=== PATIENT | male | born 1945 | race Caucasian/White ===

== ENCOUNTER → 2019-12-09 10:32 | Outpatient (CLI) | payer OTHER, SELFPAY ==
--- NOTE | 2019-12-09 | DI.CT.S_ITS ---
PROCEDURE: CT HEAD/BRAIN WO CON INDICATIONS: Other amnesia TECHNIQUE: Noncontrast 4.5 mm thick angled axial sections acquired from the foramen magnum to the vertex, with coronal and sagittal reformats. For radiation dose reduction, the following was used: automated exposure control, adjustment of mA and/or kV according to patient size. COMPARISON: None. FINDINGS: Image quality: Excellent. CSF spaces: Basal cisterns are patent. No extra-axial fluid collections. The ventricles are symmetric in size and shape. Brain: No intracranial bleeds or masses. There is cerebral volume loss for age, with resultant ventricular and sulcal prominence. There are periventricular and deep white matter chronic small vessel ischemic changes. There is intracranial internal carotid artery atherosclerosis. Skull and face: Calvarium and visualized facial bones appear intact, without suspicious lesions. Sinuses: Visualized sinuses and mastoids are clear. IMPRESSION: Unremarkable intracranial study for age. Dictated by: Drew Olivas M.D. on 12/09/2019 at 9:50 Approved by: Drew Olivas M.D. on 12/09/2019 at 9:50
== END ==
PROVIDERS: Family Provider Physician Assistant Medical; PCP Physician Assistant Medical; Referring Provider Internal Medicine; Visit Provider Internal Medicine
DX: R41.3 Other amnesia (principal)
CPT/HCPCS: 70450

== ENCOUNTER → 2023-12-09 | Outpatient (CLI) | payer OTHER, SELFPAY ==
--- NOTE | 2023-12-09 13:29 | ST.SWALLOW ---
Visit Care Team Role Provider Type Yon Gill PA-C Attending Provider Non-Staff Family Provider Primary Care Provider Referring Provider Specialty: Medical Address: [address] [place] [address], [id number] Email: Modified Barium Swallow Study CLINICAL TRIAL SPECIALIST Modified Barium Swallow Study Start: 12/09/23 09:43 Freq: Status: Active Protocol: Document 12/09/23 11:51 LNK (Rec: 12/09/23 12:29 LNK [id number]) Modified Barium Swallow Study Total Time Visit Start Time 11:00 Visit Stop Time 11:30 Total Visit Minutes [address] Yon Gill Reason for Referral dysphagia Setting Setting Outpatient Care Patient Information Identification Type Name,Date of Patient History Per clinical swallow evaluation report (CLINICAL TRIAL SPECIALIST): Pt is a 78 year old male seen this date for dysphagia evaluation. He is accompanied by his . Pt provided most information d/t Pt with dx of Alzheimer's dementia (AD ). Pt reports he has been having difficulties swallowing for about 3 years, which is when he was diagnosed with AD. She states it has gotten progressively worse. She states he chokes/coughs when eating and drinking and even when he isn't eating/ drinking... She says sometimes he will choke 3 times during a meal. She denies he has had any PNA the past 3 years. She reports pt has new set of full U/L dentures. She reports he has most difficulties swallowing dry things, large pills and will also choke during the middle of the night . She states he talks a lot while eating too and may not be breathing correctly while eating. Pt with PMHx significant for: Alzheimer's dementia, high blood pressure, high cholesteral. Subjective Observations Pt was seated in the fluoroscopy chair with directions and procedures described for him. He indicated he understood and agreed to proceed. Patient Positioning Position View Lat-A/P Imaging Lateral View Textures Administered Trials Presented Thin Liquid via Spoon (IDDSI 0 ),Thin Liquid via Cup (IDDSI 0 ),Extremely Thick Liquid via Spoon (IDDSI 4),Puree (IDDSI 4 ),Soft & Bite-sized (IDDSI, Regular (IDDSI 7) Barium Tablet Yes The IDDSI Framework Protocol: IDDSI.1 Oral Impairment Source: The Modified Barium Swallow Impairment Profile (MBSImP??) Lip Closure No labial escape Tongue Control During Bolus Hold Cohesive bolus between tongue to palatal seal Bolus Preparation/Mastication Timely & efficient chewing & mashing Bolus Transport/Lingual Motion Delayed initiation of tongue motion Oral Residue Trace residue lining oral structures Location Tongue,Lateral sulci Initiation of Pharyngeal Swallow Bolus head in valleculae Additional Oral Impairment Observations Oral phase of swallow is WNL *OME and DKS were observed to be WNL. *U/L dentures well-fitted and in good oral hygiene *Mastication observed with rotary chew pattern. *Good bolus formation, control and AP transition. Pharyngeal Impairment Source: The Modified Barium Swallow Impairment Profile (MBSImP??) Soft Palate Elevation No bolus between soft palate & pharyngeal wall Laryngeal Elevation Comp.sup.move.thyroid cart.w/ comp.approx.arytenoids to epiglot petiole Anterior Hyoid Excursion Partial anterior movement Epiglottic Movement Complete inversion Laryngeal Vestibular Closure Complete; no air/contrast in laryngeal vestibule Pharyngeal Stripping Wave Present - complete Pharyngoesophageal Segment Opening Complete distention & complete duration; no obstruction of flow Tongue Base Retraction Trace column of contrast/air betwn tongue base & post. pharyngeal wall Pharyngeal Residue Trace residue within/on pharyngeal structures Location Valleculae Additional Pharyngeal Impairment *Pharyngeal phase of Observations swallowing observed to be WFL *CP bar visualized *Mild weakness in base of tongue retraction; may be considered WNL for pt's age *No laryngeal penetration or tracheal aspiration occurred A/P View Textures Administered Trials Presented Thin Liquid via Spoon (IDDSI 0 ) The IDDSI Framework Protocol: IDDSI.1 A/P View Observations Pharyngeal Contraction Complete Esophageal Clearance Upright Position Complete clearance; esophageal coating Vocal Fold Function Good Esophageal Function WFL Additional A-P Observations Barium liquid trial and calibrated barium tablet cleared esophagus in a timely manner as expected Clinical Impressions Dysphagia Type WNL Findings Pt presented with swallowing WNL across oral, pharyngeal and esophageal phases. Pt demonstrated no laryngeal penetration or tracheal aspiration across MBSS trials. Pt likes to talk and his reports he talks frequently during meals. Additionally, pt may be increasingly distracted secondary to Alzheimer's dementia when eating/drinking. Given the results of the MBSS, the pt is likely conversing and or distracted when eating/ drinking, resulting in increased risk for laryngeal penetration and/or tracheal aspiration of food/liquids/ pills. Swallow therapy is recommended fro education re: safe swallow strategies and base of tongue exercises to reduce risk for aspiration Rehabilitation Potential Good Patient Appropriate for Therapy Yes: Pt education re: safe swallow strategies; base of tongue exercises as indic Recommendations Diet Liquids Order Thin (IDDSI 0) Diet Order Soft & Bite-sized (IDDSI 6) Medication Recommendation Whole in Carrier,One at a Time Additional Dietary Needs Reminders to Use Strategies Aspiration Precautions Recommended Precautions Upright at 90 Degrees,Frequent Rest Periods,Small Bites/Sips Additional Precautions Reduce distractions; Swallow before speaking in conversations Treatment Plan Therapy Recommendations Outpatient Speech Therapy Additional Recommended Referrals Pt's reported pt demonstrating increased PND due to potential allergies Additional Recommendations/Comments Recommend Allergy assessment due to report of increased PND, throat clearing, coughing
== END ==
LOC: RAD 10:42
PROVIDERS: Family Provider Physician Assistant; PCP Physician Assistant; Referring Provider Physician Assistant; Visit Provider Physician Assistant
DX: R13.10 Dysphagia, unspecified (principal)
CPT/HCPCS: 74230; 92610

== ENCOUNTER 2023-12-11 14:30 | Outpatient (RCR) | payer OTHER, SELFPAY ==
--- NOTE | 2023-10-08 17:13 | ST.OPIE ---
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 Yon Gill Reason for Referral Dysphagia Setting Assessment Location Outpatient Care Visit Type Note Type Initial evaluation Next Note Type Next Note Type Treatment Note Patient Information Identification Type Name History Pt is a 78 year old male seen this date for dysphagia evaluation. He is accompanied by his . Pt provided most information d/t Pt with dx of Alzheimer's dementia (AD ). Pt reports he has been having difficulties swallowing for about 3 years, which is when he was diagnosed with AD. She states it has gotten progressively worse. She states he chokes/coughs when eating and drinking and even when he isn't eating/ drinking. She reports he had a MBS completed about 5-6 months ago, however did not know what the results were and does not have the report with her. She says sometimes he will choke 3 times during a meal. She denies he has had any PNA the past 3 years. She reports he just had oral surgery about a week ago to remove his remaining teeth and now wears full dentures. She reports he has most difficulties swallowing dry things, large pills and will also choke during the middle of the night. She states he talks a lot while eating too and may not be breathing correctly while eating. Pt with PMHx significant for: Alzheimer's dementia, high blood pressure, high cholesteral. She reports he consumes regular solids and thin liquids but she has started giving him more soft foods. Subjective Observations Pt oriented to year, city and person, difficulties recalling month. Reported by Patient/Caregiver Other Symptoms Choking,Coughing,Difficulty swallowing liquids,Difficulty swallowing pills,Difficulty swallowing solids Current Diet Regular (IDDSI 7) Baseline Feeding Method Independent in self-feeding The IDDSI Framework Protocol: IDDSI.1 Objective Assessment Mental Status Alert,Responsive,Cooperative, Confused Oral Integrity WFL Dentition Upper dentures/partials,Lower dentures/partials Comment Pt with full dentures. Generalized mild reduction in lingual and labial strength and ROM. Food and Liquid Trials Position During Assessment Upright (90 degrees) Liquids Trialed Thin (IDDSI 0) Solid Trials Soft & Bite-sized (IDDSI 6), Regular (IDDSI 7) Administration Type Self-feeding Oral Impairment Mildly impaired Oral Phase Comments Pt consumed about 8 oz of juice via cup, 2 jermain crackers and diced pears. For solids, Pt demonstrated adequate bite size and rate, prolonged mastication however adequate bolus formation and control, extended ap transport , piecemeal deglutition, minimal oral stasis. For thin liquids Pt demonstrated adequate sip size and rate, good oral acceptance and containment. Pharyngeal Impairment Mildly impaired Pharyngeal Phase Comments Pt with 2x throat clear post swallows with solids. Suspected delay in swallow with all trials. No overt s/s of aspiration such as coughing or choking. Pt reports he did really well compared to what she see's at home when he is eating/drinking. Fatigue/Endurance Endurance WNL The IDDSI Framework Protocol: IDDSI.1 Findings Swallowing Function Oropharyngeal phase dysphagia Severity of Swallow Impairment Mildly-moderately impaired Prognosis Good Based on Family support Impact on Safety and Functioning Risk for aspiration Recommendations Instrumental Assessment Yes Swallowing Treatment Yes Frequency 1x/week Duration 3 months Recommended Solids Soft & Bite-sized (IDDSI 6) Recommended Liquids Thin (IDDSI 0) Other Recommendations ST recommends Pt consume soft and bite sized solids and thin liquids with the below mentioned safe swallowing strategies in place. ST recommends Pt participate in a MBS. Safety Precautions/Swallowing 1 to 1 distant supervision, Recommendations Remain upright (90 degrees) during all oral intake,Upright position at least 30 minutes after meals,Small bites and sips when eating,Slow rate; swallow between bites, Alternate liquids and solids, Strict oral care after intake Medication Recommendations As Tolerated Education Patient/Caregiver Education Described results of evaluation,Patient expressed understanding of evaluation, Patient expressed agreement with goals & treatment plans, Patient requires further education/training,Family/ caregivers require further education/training Goals Short-term Goals STG 1: Pt will participate in MBS in order to further guide POC. STG 2: Pt will tolerate prescribed diet with <5% overt s/s of aspiration/dysphagia with use of compensatory swallowing strategies and minimal cues. STG 3: Pt will complete hyolaryngeal strengthening exercises for improved pharyngeal phase of swallow with minimal cueing with 90% accuracy. Long-term Goals LTG 1: Patient will consume safest and most efficient least restrictive diet with no clinical s/s of aspiration or dysphagia 100% of the time in order to meet primary nutrition/hydration needs.
--- NOTE | 2023-10-08 17:13 | ST.OPPOC ---
Physical, Occupational & Speech Therapy At [facility] Visit Care Team Role Provider Type Yon Gill PA-C Attending Provider Non-Staff Family Provider Primary Care Provider Referring Provider Address: [address] [place] [address], [id number] Speech Pathology Plan of Care Plan of Care Dates 10/08/23-01/08/[address] Yon Gill Patient History Pt is a 78 year old male seen this date for dysphagia evaluation. He is accompanied by his . Pt provided most information d/t Pt with dx of Alzheimer's dementia (AD). Pt reports he has been having difficulties swallowing for about 3 years, which is when he was diagnosed with AD. She states it has gotten progressively worse. She states he chokes/coughs when eating and drinking and even when he isn't eating/drinking. She reports he had a MBS completed about 5-6 months ago, however did not know what the results were and does not have the report with her. She says sometimes he will choke 3 times during a meal. She denies he has had any PNA the past 3 years. She reports he just had oral surgery about a week ago to remove his remaining teeth and now wears full dentures . She reports he has most difficulties swallowing dry things, large pills and will also choke during the middle of the night. She states he talks a lot while eating too and may not be breathing correctly while eating. Pt with PMHx significant for: Alzheimer's dementia, high blood pressure, high cholesteral. She reports he consumes regular solids and thin liquids but she has started giving him more soft foods. Short-term Goals STG 1: Pt will participate in MBS in order to further guide POC. STG 2: Pt will tolerate prescribed diet with <5% overt s/s of aspiration/dysphagia with use of compensatory swallowing strategies and minimal cues. STG 3: Pt will complete hyolaryngeal strengthening exercises for improved pharyngeal phase of swallow with minimal cueing with 90% accuracy. Long-term Goals LTG 1: Patient will consume safest and most efficient least restrictive diet with no clinical s/s of aspiration or dysphagia 100% of the time in order to meet primary nutrition/ hydration needs. Comment: ST recommends referral for MBS at [facility]. Fax number . Electronically Signed by: NEY Chavira 10/08/23 [id number] If you are in agreement with this Plan of Care, please return a signed and dated copy. I have reviewed this Plan of Care and certify that the skilled therapy services above are required to meet the patient?s needs. Physician Signature Date Printed Name and Credentials Clinical Instructor Signature Printed Name and Credentials
--- NOTE | 2023-12-11 15:01 | ST.OPTN ---
Visit Care Team Role Provider Type Yon Gill PA-C Attending Provider Non-Staff Family Provider Primary Care Provider Referring Provider Address: [address] [place] [address], [id number] SALESFORCE BUSINESS ANALYST Treatment Note SALESFORCE BUSINESS ANALYST Treatment Note Start: 12/11/23 14:54 Freq: Status: Active Protocol: Document 12/11/23 14:55 RACHEL (Rec: 12/11/23 15:01 RACHEL [id number]) Speech Pathology Treatment Note Session Time Visit Start Time 14:30 Visit Stop Time 15:00 Total Visit Minutes 30 Visit Information Visit Number 2 Plan of Care Dates 10/08/23-01/08/24 Setting Treatment Setting Outpatient Care General Information Patient History Pt is a 78 year old male seen this date for dysphagia evaluation. He is accompanied by his . Pt provided most information d/t Pt with dx of Alzheimer's dementia (AD ). Pt reports he has been having difficulties swallowing for about 3 years, which is when he was diagnosed with AD. She states it has gotten progressively worse. She states he chokes/coughs when eating and drinking and even when he isn't eating/ drinking. She reports he had a MBS completed about 5-6 months ago, however did not know what the results were and does not have the report with her. She says sometimes he will choke 3 times during a meal. She denies he has had any PNA the past 3 years. She reports he just had oral surgery about a week ago to remove his remaining teeth and now wears full dentures. She reports he has most difficulties swallowing dry things, large pills and will also choke during the middle of the night. She states he talks a lot while eating too and may not be breathing correctly while eating. Pt with PMHx significant for: Alzheimer's dementia, high blood pressure, high cholesteral. She reports he consumes regular solids and thin liquids but she has started giving him more soft foods. Subjective Observations/Patient Presentation Pt arrived on time with his who accompanied him to therapy. Objective Short Term Goals STG 1: Pt will participate in MBS in order to further guide POC. - MET STG 2: Pt will tolerate prescribed diet with <5% overt s/s of aspiration/ dysphagia with use of compensatory swallowing strategies and minimal cues. - MET STG 3: Pt will complete hyolaryngeal strengthening exercises for improved pharyngeal phase of swallow with minimal cueing with 90% accuracy. - MET Fdc Goals LTG 1: Patient will consume safest and most efficient least restrictive diet with no clinical s/s of aspiration or dysphagia 100% of the time in order to meet primary nutrition/ hydration needs. - MET Treatment Activities Education re: safe swallowing strategies and base of tongue strengthening exercises, MBS review Assessment Patient Response to Treatment Excellent Rehab Potential Excellent Progress Towards Goals Appropriate for Discharge Assessment of Improvement Pt had a MBS completed on 12/08. ST reviewed the following impressions/recommendations with Pt and his : Findings Pt presented with swallowing WNL across oral, pharyngeal and esophageal phases. Pt demonstrated no laryngeal penetration or tracheal aspiration across MBSS trials. Pt likes to talk and his reports he talks frequently during meals. Additionally, pt may be increasingly distracted secondary to Alzheimer's dementia when eating/drinking. Given the results of the MBSS, the pt is likely conversing and or distracted when eating/ drinking, resulting in increased risk for laryngeal penetration and/or tracheal aspiration of food/liquids/ pills. Swallow therapy is recommended fro education re: safe swallow strategies and base of tongue exercises to reduce risk for aspiration Rehabilitation Potential Good Patient Appropriate for Therapy Yes: Pt education re: safe swallow strategies; base of tongue exercises as indic Recommendations Diet Liquids Order Thin (IDDSI 0) Diet Order Soft & Bite-sized (IDDSI 6) Medication Recommendation Whole in Carrier, One at a Time Additional Dietary Needs Reminders to Use Strategies Aspiration Precautions Recommended Precautions Upright at 90 Degrees,Frequent Rest Periods,Small Bites/Sips Additional Precautions Reduce distractions; Swallow before speaking in conversations Treatment Plan Therapy Recommendations Outpatient Speech Therapy Additional Recommended Referrals Pt's reported pt demonstrating increased PND due to potential allergies Additional Recommendations/ Comments Recommend Allergy assessment due to report of increased PND , throat clearing, coughing Pt reports he has been frequently coughing, inconsistently with not eating /drinking and during. However, reports she believes it may be d/t allergies. ST reviewed MBS results and recommendation to see Pt's PCP in regards to allergy testing . ST provided educational handouts on safe swallowing strategies, such as not talking while eating, reducing distractions d/t Pt with cognitive deficits that may result in him getting distracted during meals, and to ensure he is drinking liquids with his head in a neutral position. ST also provided base of tongue exercises, such as Janice, and provided a visual and verbal demonstration. Pt able to demonstrate with 100% accuracy . ST recommended Pt complete exercises 2-3x/day and to implement safe swallowing strategies. ST recommended discharge from therapy at this time, however to return if increase in swallowing issues arise. Pt and Pt verbalized udnerstanding. Reviewed with Patient Goals,Home Exercise Program Plan Frequency of Treatment No Further Therapy Provided Patient/Caregiver Instruction Home Exercise Program,Plan of Care,Questions/Concerns
== END 2023-12-16 14:39 | disposition home or self-care (01) ==
LOC: SP 14:30
PROVIDERS: Family Provider Physician Assistant; PCP Physician Assistant; Referring Provider Physician Assistant; Visit Provider Physician Assistant
DX: R13.10 Dysphagia, unspecified (principal)
CPT/HCPCS: 92526; 92610